=== PATIENT | male | born 1945 | race Caucasian/White ===

== ENCOUNTER 2023-02-22 11:45 | Emergency (ER) | payer MEDICARE, OTHER ==
[~2023-02-22] VITALS: Ht 165.1 cm; Wt 68.0 kg
[2023-02-22 11:47] VITALS: BP 136/83; PULSE 103; RESP 16; TEMP 98.1; O2SAT 98
[2023-02-22] MEDS ORDERED: BACITRACIN OINT 500 UNITS/GM PKT TP ONE ×2 (13:00→14:17)
[2023-02-22] MEDS ORDERED: LIDOCAINE 1% 500 MG/ 50 ML VIAL INJ ONE (13:00)
[2023-02-22] MEDS ORDERED: LIDOCAINE MPF 1% 5 ML ONE (13:14)
[2023-02-22] MEDS ORDERED: LIDOCAINE MPF 1% 10 MG/ML VIAL INJ ONE (13:15)
[2023-02-22 14:27] VITALS: BP 132/78; PULSE 76; RESP 14; TEMP 97.1; O2SAT 100
== END 2023-02-22 14:27 | disposition home or self-care (01) ==
LOC: MED 11:45
DX: S81.011A Laceration without foreign body, right knee, initial encounter (principal); Z96.651 Presence of right artificial knee joint; W31.2XXA Contact with powered woodworking and forming machines, initial encounter; Y92.009 Unspecified place in unspecified non-institutional (private) residence as the place of occurrence of the external cause; Y93.89 Activity, other specified; Y99.8 Other external cause status
CPT/HCPCS: 12032; 90471; 90715; 99284; J2001; 99283